=== PATIENT | male | born 2000 | race Caucasian/White ===

== ENCOUNTER 2020-07-12 04:44 | Emergency (ER) | payer SELFPAY ==
[2020-07-12] MEDS ORDERED: methylPREDNISolone Sodium Succinate 125 MG/2 ML SDV IM ONE (05:14)
[2020-07-12] MEDS ORDERED: Famotidine 20 MG Tab PO ONE (05:15)
--- NOTE | 2020-07-12 05:19 | EDM.PDOC ---
ED HPI GENERAL MEDICAL PROBLEM - General Chief Complaint: ENT Problem Stated Complaint: SOB JOYCEUNGE SWELLING Time Seen by Provider: 07/12/20 05:08 Source of Information: Reports: Patient History Limitations: Reports: No Limitations - History of Present Illness INITIAL COMMENTS - FREE TEXT/NARRATIVE: The patient presents with a swollen tongue. This has been going on for 2 days. He has hypertension and he is on lisinopril. He has some shortness of breath with it. He has no cough, congestion, runny nose, abdominal pain, or rash. He has some nausea with the tongue swelling. The patient does admit to smoking marijuana a few nights ago. Onset: Gradual Duration: Day(s): (2) Location: Reports: Other (tongue) Severity: Moderate Improves with: Reports: None Worsens with: Reports: None Associated Symptoms: Reports: No Other Symptoms Treatments [employer]: Reports: Acetaminophen, NSAIDS Oral/Mouth Pain Score (Numeric/FACES): 6 - Related Data Allergies Allergy/AdvReac Type Severity Reaction Status Date / Time No Known Allergies Allergy Verified 07/12/20 04:58 Home Meds: Home Meds cloNIDine [Catapres] 0.1 mg PO DAILY PRN 07/12/20 [History] lisinopriL [Lisinopril] 2.5 mg PO DAILY 07/12/20 [History] predniSONE [Prednisone] 40 mg PO DAILY #10 tablet 07/12/20 [Rx] Past Medical History - Past Health History Medical/Surgical History: Denies Medical/Surgical History Cardiovascular History: Reports: Hypertension Musculoskeletal History: Reports: Fracture Other Musculoskeletal History: nose Neurological History: Reports: Migraines Social & Family History - Caffeine Use Caffeine Use: Reports: None - Recreational Drug Use Recreational Drug Use: Yes Drug Use in Last 12 Months: Yes Recreational Drug Type: Reports: Cocaine ED ROS ENT - Review of Systems Review Of Systems: See Below Constitutional: Reports: No Symptoms HEENT: Reports: Other (tongue swelling) Respiratory: Reports: No Symptoms Cardiovascular: Reports: No Symptoms Endocrine: Reports: No Symptoms GI/Abdominal: Reports: No Symptoms : Reports: No Symptoms Musculoskeletal: Reports: No Symptoms Skin: Reports: No Symptoms ED EXAM, ENT - Physical Exam Exam: See Below Exam Limited By: No Limitations General Appearance: Alert, No Apparent Distress Ears: Normal External Exam Nose: Normal Inspection Mouth/Throat: Other (moderate swelling of his tongue) Head: Atraumatic, Normocephalic Neck: Normal Inspection Respiratory/Chest: No Respiratory Distress, Lungs Clear, Normal Breath Sounds Cardiovascular: Regular Rate, Rhythm, No Edema, No Murmur GI/Abdominal: Soft, Non-Tender, No Organomegaly, No Mass Extremities: Normal Inspection Course - Vital Signs Last Recorded V/S: Last Vital Signs Temp 97.8 F 07/12/20 04:46 Pulse 89 07/12/20 04:46 Resp 18 07/12/20 04:46 BP 153/93 H 07/12/20 04:46 Pulse Ox 97 07/12/20 04:46 - Orders/Labs/Meds Meds: Medications Discontinued Medications Generic Name Dose Route Start Last Admin Trade Name Freq PRN Reason Stop Dose Admin Famotidine 20 mg 07/12/20 05:15 Pepcid PO 07/12/20 05:16 ONETIME ONE Methylprednisolone Sodium Succinate 125 mg 07/12/20 05:14 Solu-Medrol IM 07/12/20 05:15 ONETIME ONE - Re-Assessments/Exams Free Text/Narrative Re-Assessment/Exam: 07/12/20 05:18 I ordered a shot of solu-medrol 125mg IM and pepcid 20mg PO. He is reacting to the lisinopril. I will get him on some steroids. Departure - Departure Time of Disposition: 05:20 Disposition: Home, Self-Care 01 Condition: Good Clinical Impression: Allergy to lisinopril Angioedema Qualifiers: Encounter type: initial encounter Qualified Code(s): T78.3XXA - Angioneurotic edema, initial encounter - Discharge Information *PRESCRIPTION DRUG MONITORING PROGRAM REVIEWED*: Not Applicable *COPY OF PRESCRIPTION DRUG MONITORING REPORT IN PATIENT RAPHAEL: Not Applicable Prescriptions: predniSONE [Prednisone] 40 mg PO DAILY #10 tablet Forms: ED Department Discharge Additional Instructions: Do not take lisinopril again or any other DONNIE inhibitor. Take the prednisone daily for 5 days. Take pepcid 20mg daily for a week. Pepcid is a histamine mk more for your stomach but it does help in allergic reaction. Take benadryl 50mg every 6 hours as needed for allergies. Sepsis Event Note (ED) - Evaluation Sepsis Screening Result: No Definite Risk - Focused Exam Vital Signs: Vital Signs Temp Pulse Resp BP Pulse Ox 07/12/20 04:46 97.8 F 89 18 153/93 H 97
== END 2020-07-12 05:40 | disposition home or self-care (01) ==
LOC: JD.ED 04:44
DX: T78.3XXA Angioneurotic edema, initial encounter (principal); I10 Essential (primary) hypertension; Z88.8 Allergy status to other drugs, medicaments and biological substances; Z79.899 Other long term (current) drug therapy
CPT/HCPCS: 96372; 99283; A9270; J2930

== ENCOUNTER 2020-08-16 16:44 | Emergency (ER) | payer MEDICAID ==
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
== END 2020-08-16 18:01 | disposition home or self-care (01) ==
LOC: JD.ED 16:44
DX: S61.512A Laceration without foreign body of left wrist, initial encounter (principal); I10 Essential (primary) hypertension; Z88.8 Allergy status to other drugs, medicaments and biological substances; F17.210 Nicotine dependence, cigarettes, uncomplicated; Y04.0XXA Assault by unarmed brawl or fight, initial encounter
CPT/HCPCS: 12002; 99283-25